=== PATIENT | male | born 1965 | race Hispanic/Latino ===

== ENCOUNTER 2021-08-20 16:28 | Emergency (ER) | payer OTHER ==
--- NOTE | 2021-08-20 17:22 | RAD REPORT ---
EXAM DESCRIPTION: RAD - Ankle Right 3 View - 08/20/2021 5:15 pm CLINICAL HISTORY: PAIN COMPARISON: No comparisons FINDINGS: Central depression type comminuted fracture of the calcaneus is present. Moderate soft tis yesy swelling is noted.
--- NOTE | 2021-08-20 18:26 | EDPHYS ---
Physician Documentation [facility] Name: Celestino Aldridge Age: 55 yrs Sex: Male : 1965 Arrival Date: 08/20/2021 Time: 16:36 Bed 15 Private MD: ED Physician Palomo Ballesteros HPI: 08/20 18:21 This 55 yrs old Male presents to ER via Wheelchair with complaints of Ankle kb Injury, Fall Injury. 18:21 The patient presents with pain, that is acute, swelling, tenderness. The complaints kb affect the right ankle. Onset: The symptoms/episode began/occurred just prior to arrival. Context: The problem was sustained outdoors, resulted from the patient falling, The patient can fully bear weight on the affected extremity. the patient is able to ambulate. Associated signs and symptoms: Pertinent positives: swelling, Pertinent negatives: calf tenderness, fever, nausea, numbness, rash, tingling, vomiting, warmth, weakness. Modifying factors: The symptoms are alleviated by nothing, the symptoms are aggravated by weight bearing, movement. Severity of symptoms: At their worst the symptoms were moderate, in the emergency department the symptoms are unchanged. The patient has not experienced similar symptoms in the past. The patient has not recently seen a physician. Pt states he was 4-5 ft up on a ladder and it started to fall so he jumped off and landed on right heel then twisted ankle. c/o ankle pain and swelling. Historical: - Allergies: 16:39 No Known Allergies; jd3 - Home Meds: 16:39 HTN med [Active]; jd3 - PMHx: 16:39 Hypertensive disorder; jd3 - PSHx: 16:39 lungs; jd3 - Immunization history:: Adult Immunizations up to date, Client reports receiving the 2nd dose of the Covid vaccine, Flu vaccine is not up to date. - Social history:: Smoking status: Patient denies any tobacco usage or history of. ROS: 18:20 Constitutional: Negative for fever, chills, and weight loss. kb 18:20 MS/extremity: Positive for pain, swelling, tenderness, of the right ankle. 18:20 All other systems are negative. Exam: 18:20 Constitutional: This is a well developed, well nourished patient who is awake, alert, kb and in no acute distress. Head/Face: Normocephalic, atraumatic. ENT: Moist Mucous membranes Respiratory: Respirations even and unlabored. No increased work of breathing. Talking in full sentences Skin: Warm, dry with normal turgor. Normal color. Neuro: Awake and alert, GCS 15, oriented to person, place, time, and situation. Moves all extremities. Normal gait. Psych: Awake, alert, with orientation to person, place and time. Behavior, mood, and affect are within normal limits. 18:20 Musculoskeletal/extremity: Extremities: grossly normal except: noted in the right ankle: pain, swelling, tenderness, ROM: intact in all extremities, Circulation is intact in all extremities. Sensation intact. Weight bearing: can bear weight with assistance only. Vital Signs: 16:40 BP 144 / 94; Pulse 114; Resp 19 S; Temp 98.4(TE); Pulse Ox 99% on R/A; Weight 83.91 kg jd3 (R); Height 5 ft. 8 in. (172.72 cm) (R); Pain 9/10; 16:45 BP 143 / 92; Pulse 98; Resp 16; Pulse Ox 97% on R/A; vg1 16:40 Body Mass Index 28.13 (83.91 kg, 172.72 cm) jd3 Procedures: 18:33 Splinting: Splint applied to right ankle using Orthoglass splint, applied by tech. kb Examined by me, post splint application: neurovascular intact, 2+ distal pulses palpable, brisk capillary refill noted, Patient tolerated well. MDM: 16:42 Patient medically screened. kb 17:29 Data reviewed: vital signs, nurses notes. Data interpreted: Pulse oximetry: on room air kb is 97 %. Interpretation: normal. Counseling: I had a detailed discussion with the patient and/or guardian regarding: the historical points, exam findings, and any diagnostic results supporting the discharge/admit diagnosis, radiology results, the need for outpatient follow up, a orthopedic surgeon, to return to the emergency department if symptoms worsen or persist or if there are any questions or concerns that arise at home. 08/20 16:50 Order name: Ankle Right 3 View XRAY; Complete Time: 17:25 kb 08/20 17:26 Order name: Short Leg Splint; Complete Time: 17:47 kb 08/20 17:26 Order name: Crutches; Complete Time: 17:47 kb Administered Medications: No medications were administered Disposition: 08/21 07:25 Co-signature as Attending Physician, Palomo Ballesteros MD I agree with the assessment and kdr plan of care. Disposition Summary: 08/20/21 18:26 Discharge Ordered Location: Home kb Condition: Stable kb Diagnosis - Fracture of calcaneus kb - Sprain of ankle kb Followup: kb - With: Emergency Department - When: As needed - Reason: Worsening of condition Followup: kb - With: Private Physician - When: 2 - 3 days - Reason: Recheck today's complaints, Continuance of care, Re-evaluation by your physician Discharge Instructions: - Discharge Summary Sheet kb - Calcaneal Fracture Repair Surgery kb - Ankle Sprain, [id number] kb Forms: - Medication Reconciliation Form kb - Thank You Letter kb - Antibiotic Education kb - Prescription Opioid Use kb Prescriptions: - Diclofenac Sodium 75 mg Oral tablet,delayed release (DR/EC) - take 1 tablet by ORAL route 2 times per day As needed; 30 tablet; Refills: 0, kb Product Selection Permitted Signatures: Dispatcher [employer] EDMS Cornelia Kruger, PRODUCTION ZONE LEADER-C PRODUCTION ZONE LEADER-Phanib Palomo Ballesteros MD MD kdr Davies, Jonathon RN RN jd3 Corrections: (The following items were deleted from the chart) 08/20 16:40 16:39 PMHx: None; jd3 jd3
--- NOTE | 2021-08-20 18:26 | ER ---
Nurse's Notes [facility] Name: Celestino Aldridge Age: 55 yrs Sex: Male : 1965 Arrival Date: 08/20/2021 Time: 16:36 Bed 15 Private MD: Diagnosis: Fracture of calcaneus;Sprain of ankle Presentation: 08/20 16:38 Chief complaint: Patient states: "I was on a ladder and fell about 4 feet onto my feet jd3 and I hurt my right ankle.". Coronavirus screen: At this time, the client does not indicate any symptoms associated with coronavirus-19. Ebola Screen: No symptoms or risks identified at this time. Initial Sepsis Screen: Does the patient meet any 2 criteria? No. Patient's initial sepsis screen is negative. Does the patient have a suspected source of infection? No. Patient's initial sepsis screen is negative. Risk Assessment: Do you want to hurt yourself or someone else? Patient reports no desire to harm self or others. Onset of symptoms was August 20, 2021. 16:38 Method Of Arrival: Wheelchair jd3 16:38 Acuity: PILAR 3 jd3 Historical: - Allergies: 16:39 No Known Allergies; jd3 - Home Meds: 16:39 HTN med [Active]; jd3 - PMHx: 16:39 Hypertensive disorder; jd3 - PSHx: 16:39 lungs; jd3 - Immunization history:: Adult Immunizations up to date, Client reports receiving the 2nd dose of the Covid vaccine, Flu vaccine is not up to date. - Social history:: Smoking status: Patient denies any tobacco usage or history of. Screenin:05 Abuse screen: Denies threats or abuse. Nutritional screening: No deficits noted. vg1 Tuberculosis screening: No symptoms or risk factors identified. Fall Risk Fall in past 12 months (25 points). No secondary diagnosis (0 pts). No IV (0 pts). Ambulatory Aid- None/Bed Rest/Nurse Assist (0 pts). Gait- Normal/Bed Rest/Wheelchair (0 pts) Mental Status- Oriented to own ability (0 pts). Total Lilly Fall Scale indicates No Risk (0-24 pts). Assessment: 16:45 General: Appears in no apparent distress. comfortable, Behavior is calm, cooperative. vg1 Pain: Complains of pain in Right ankle Pain currently is 5 out of 10 on a pain scale. Pain began 1 hour ago. Neuro: Level of Consciousness is awake, alert, obeys commands, Oriented to person, place, time, situation. Cardiovascular: Patient's skin is warm and dry. Respiratory: Airway is patent Respiratory effort is even, unlabored. GI: No signs and/or symptoms were reported involving the gastrointestinal system. : No signs and/or symptoms were reported regarding the genitourinary system. EENT: No signs and/or symptoms were reported regarding the EENT system. Derm: Skin is intact, is healthy with good turgor. Musculoskeletal: Circulation, motion, and sensation intact. Swelling present in Right ankle. 18:25 Reassessment: Patient appears in no apparent distress at this time. No changes from vg1 previously documented assessment. Patient and/or family updated on plan of care and expected duration. Pain level reassessed. Patient is alert, oriented x 3, equal unlabored respirations, skin warm/dry/pink. Vital Signs: 16:40 BP 144 / 94; Pulse 114; Resp 19 S; Temp 98.4(TE); Pulse Ox 99% on R/A; Weight 83.91 kg jd3 (R); Height 5 ft. 8 in. (172.72 cm) (R); Pain 9/10; 16:45 BP 143 / 92; Pulse 98; Resp 16; Pulse Ox 97% on R/A; vg1 16:40 Body Mass Index 28.13 (83.91 kg, 172.72 cm) jd3 ED Course: 16:36 Patient arrived in ED. am2 16:39 Triage completed. jd3 16:41 Arm band placed on. jd3 16:42 Cornelia Kruger FNP-C [facility]. kb 16:42 Palomo Ballesteros MD is Attending Physician. kb 16:56 Grisel Rodriguez, ALICIA is Primary Nurse. vg1 17:05 Patient has correct armband on for positive identification. Bed in low position. Call 1 light in reach. Side rails up X 1. 17:05 No provider procedures requiring assistance completed. vg1 17:17 Ankle Right 3 View XRAY In Process Unspecified. EDMS 17:48 Crutch training done. Orthoglass splint: Posterior long leg splint applied on. 5 18:52 Orthoglass splint: Posterior long leg splint applied on right leg. mh5 18:59 Patient did not have IV access during this emergency room visit. vg1 Administered Medications: No medications were administered Outcome: 18:26 Discharge ordered by . kb 18:59 Discharged to home via wheelchair, with crutches. vg1 18:59 Condition: good 18:59 Discharge instructions given to patient, Instructed on discharge instructions, follow up and referral plans. medication usage, Demonstrated understanding of instructions, follow-up care, medications, Prescriptions given X 1. 19:00 Patient left the ED. vg1 Signatures: Dispatcher [employer] EDMS Cornelia Kruger, METAL DIE FINISHER-C METAL DIE FINISHER-Loreta Arango 5 Judy Foy 2 Nahid Peguero RN RN Grisel Gu RN RN vg1 Corrections: (The following items were deleted from the chart) 16:40 16:39 PMHx: None; fadumo thorne
[2021-08-21 03:03] VITALS: TEMP 98.4
[2021-08-21 03:05] VITALS: BP 143/92; O2SAT 97
== END 2021-08-20 19:00 | disposition home or self-care (01) ==
LOC: ER 16:28
PROC: 2W3QX1Z Immobilization of Right Lower Leg using Splint (ICD-10-PCS; principal; 2021-08-20)
DX: S92.001A Unspecified fracture of right calcaneus, initial encounter for closed fracture (principal); S93.401A Sprain of unspecified ligament of right ankle, initial encounter; W11.XXXA Fall on and from ladder, initial encounter; I10 Essential (primary) hypertension
CPT/HCPCS: 99283